=== PATIENT | female | born 1970 | race American Indian/Alaskan Native ===

== ENCOUNTER 2018-06-18 10:04 | Outpatient (CLI) | payer OTHER | END 2018-06-18 10:05 | disposition home or self-care (01) | LOC: LABHHL 10:04 | PROVIDERS: ATTEND Specialist | DX: N63.10 Unspecified lump in the right breast, unspecified quadrant (principal) | CPT/HCPCS: 88305 ==

== ENCOUNTER 2019-08-08 06:55 | Day surgery (SDC) | payer OTHER ==
[2019-08-08] MEDS ORDERED: SODIUM CHLORIDE 0.9% 1000 ML 1,000 ML IV SCH (07:00)
[2019-08-08] MEDS ORDERED: PROPOFOL 200 MG/20 ML VIAL IV ONE ×2 (07:50)
--- NOTE | 2019-08-08 08:23 | Operative Report ---
Operative Report Operative Report: DOS: 08/08/19 SURGEON: Bacilio Mena MD COLONOSCOPY with biopsy polypectomy REPORT PREOPERATIVE AND POSTOPERATIVE DIAGNOSIS: screening colon DESCRIPTION OF PROCEDURE: The colonoscope was passed to the terminal ileum as identified by the ileal tissue. Scope was carefully withdrawn. Retroflexion was performed in the rectum. At the end of procedure, the scope was cleaned using normal technique. Vital signs monitored continuously throughout. SEDATION: Provided by [facility]. Quality of the prep was good COMPLICATIONS: None. ESTIMATED BLOOD LOSS: minimal FINDINGS: * 2mm sessile polyp of the sigmoid colon removed with cold biopsy polypectomy. * Normal TI * Enlarged IC valve with atypical appearance; cold biopsy forceps used to obtain tissue to ensure no adenomatous tissue * Small internal hemorrhoids * Remainder of the exam was normal RECOMMENDATIONS: * If IC valve biopsy normal, then repeat colon 5-10 years based upon polyp tissue. If IC valve biopsy adenomatous, will require surgical intervention to remove.
[2019-08-08 08:39] VITALS: BP 105/54
== END 2019-08-08 06:56 | disposition home or self-care (01) ==
LOC: GIO 06:55
PROVIDERS: ATTEND Student in an Organized Health Care Education/Training Program
DX: Z12.11 Encounter for screening for malignant neoplasm of colon (principal); K63.5 Polyp of colon; K64.8 Other hemorrhoids; K63.89 Other specified diseases of intestine; M19.90 Unspecified osteoarthritis, unspecified site; Z79.899 Other long term (current) drug therapy; Z90.710 Acquired absence of both cervix and uterus; Z98.890 Other specified postprocedural states
CPT/HCPCS: 45380; 88305; J2704; J7030

== ENCOUNTER 2021-07-15 08:29 | Outpatient (CLI) | payer OTHER ==
--- NOTE | 2021-07-15 11:23 | Mammography Report ---
DIGITAL SCREENING MAMMOGRAM WITH CAD, 07/15/2021 CLINICAL INFORMATION / INDICATION: Routine screening mammography. SCREENING MAMMOGRAM TECHNIQUE: Digital bilateral 2D mammography was obtained in the craniocaudal and mediolateral obliqu e projections. This examination was interpreted with the benefit of Computer-Aided Detection analysis . COMPARISON: 06/25/2020 FINDINGS: Breast Density: The breasts are heterogeneously dense, which may obscure small masses. No dominant mass, suspicious calcifications, or architectural distortion in either breast. Old biopsy change again seen in the right breast. IMPRESSION: No mammographic evidence of malignancy. Follow up recommendation: Routine yearly BI-RADS Category 2: Benign. A "normal" or negative report should not discourage follow up or biopsy of a clinically significant f inding. A written summary of these findings will be mailed to the patient. The patient will be entered into a mammography reporting system which will generate a reminder letter for the patient's next appointmen t at the appropriate interval. The [employer] recommends yearly mammograms starting at age 40 and continuing as l gavino as a woman is in good health. Breast MRI is recommended for women with an approximate 20-25% or greater lifetime risk of breast cancer, including women with a strong family history of breast or ova vero cancer or who have been treated for Hodgkin's disease. Signer Name: Ayo Schwarz MD Signed: 07/15/2021 11:19 AM Workstation Name: [id number]
== END 2021-07-15 08:30 | disposition home or self-care (01) ==
LOC: SPVWC 08:29
PROVIDERS: ATTEND Surgery
DX: Z12.31 Encounter for screening mammogram for malignant neoplasm of breast (principal)
CPT/HCPCS: 77063; 77067